=== PATIENT | female | born 1945 | race Caucasian/White ===

== ENCOUNTER → 2017-06-01 | Outpatient (CLI) | payer MEDICARE, BC | LOC: RAD 09:20 | DX: M25.562 Pain in left knee (principal); M25.569 Pain in unspecified knee; M17.11 Unilateral primary osteoarthritis, right knee ==

== ENCOUNTER → 2017-09-23 | Outpatient (CLI) | payer MEDICARE, BC | LOC: MAMMO 08:23 | DX: Z12.31 Encounter for screening mammogram for malignant neoplasm of breast (principal) | CPT/HCPCS: G0202 ==

== ENCOUNTER → 2017-11-17 | Outpatient (CLI) | payer MEDICARE, BC ==
[2017-11-17 10:10] LABS: HEMATOCRIT 45.4 % (37.0-47.0); HEMOGLOBIN 14.6 g/dL (12.5-16.0); RED BLOOD COUNT 4.98 M/mm3 (4.10-5.30); RED CELL DISTRIBUTION WIDTH 13.7 % (11.5-14.5); WHITE BLOOD COUNT 12.4 K/mm3 (4.8-10.8)
[2017-11-17 10:28] LABS: CALCIUM 9.7 mg/dL (8.4-10.2); POTASSIUM 4.5 mmol/L (3.6-5.0); TOTAL BILIRUBIN 0.6 mg/dL (0.2-1.3); TOTAL PROTEIN 6.9 g/dL (6.3-8.2)
== END ==
LOC: LAB 09:37
PROVIDERS: Nurse Practitioner Family
DX: E78.2 Mixed hyperlipidemia (principal); M15.9 Polyosteoarthritis, unspecified

== ENCOUNTER → 2018-05-18 | Outpatient (CLI) | payer MEDICARE, BC | LOC: LAB 08:24 | DX: E78.2 Mixed hyperlipidemia (principal) ==

== ENCOUNTER → 2018-08-17 | Outpatient (CLI) | payer MEDICARE, BC ==
[2018-08-17 11:15] LABS: ALBUMIN 4.3 g/dL (3.5-5.0); CALCIUM 9.8 mg/dL (8.4-10.2); POTASSIUM 4.6 mmol/L (3.6-5.0); TOTAL BILIRUBIN 0.6 mg/dL (0.2-1.3); TOTAL PROTEIN 7.1 g/dL (6.3-8.2)
== END ==
LOC: LAB 08:08
PROVIDERS: Physician Assistant
DX: E78.2 Mixed hyperlipidemia (principal)

== ENCOUNTER → 2018-10-20 | Outpatient (CLI) | payer MEDICARE, BC | LOC: MAMMO 12:59 | DX: Z12.31 Encounter for screening mammogram for malignant neoplasm of breast (principal) ==

== ENCOUNTER → 2019-02-24 | Outpatient (CLI) | payer MEDICARE, BC ==
[2019-02-24 08:56] LABS: ALBUMIN 3.8 g/dL (3.5-5.0); DIRECT BILIRUBIN 0.3 mg/dL (0.0-0.4); TOTAL BILIRUBIN 0.5 mg/dL (0.2-1.3); TOTAL PROTEIN 6.8 g/dL (6.3-8.2)
== END ==
LOC: LAB 08:23
PROVIDERS: Physician Assistant
DX: E78.2 Mixed hyperlipidemia (principal); E78.00 Pure hypercholesterolemia, unspecified

== ENCOUNTER → 2019-06-08 | Outpatient (CLI) | payer MEDICARE, BC ==
[2019-06-08 08:53] LABS: HEMATOCRIT 45.6 % (37.0-47.0); HEMOGLOBIN 14.4 g/dL (12.5-16.0); MEAN CELL VOLUME 89 fl (78-100); MEAN CORPUSCULAR HEMOGLOBIN 28 pg (27-31); MEAN CORPUSCULAR HGB CONC 32 g/dL (33-37); MEAN PLATELET VOLUME 8.8 fl (7.4-10.4); PLATELET COUNT 279 K/mm3 (130-400); RED CELL DISTRIBUTION WIDTH 14.5 % (11.5-14.5)
[2019-06-08 09:21] LABS: ALBUMIN 4.1 g/dL (3.4-4.8); POTASSIUM 4.5 mmol/L (3.5-5.1)
[2019-06-08 09:22] LABS: CALCIUM 9.7 mg/dL (8.3-10.5)
[2019-06-08 09:23] LABS: WHITE BLOOD COUNT 20.5 K/mm3 (4.8-10.8)
[2019-06-08 09:24] LABS: TOTAL PROTEIN 6.2 g/dL (6.2-8.1)
[2019-06-08 09:25] LABS: TOTAL BILIRUBIN 0.5 mg/dL (0.2-1.2)
[2019-06-08 11:42] LABS: LYMPHOCYTE 77 % (20-51); MONOCYTE 5 % (3-10); NEUTROPHILS 17 % (42-75)
== END ==
LOC: LAB 08:44
PROVIDERS: Physician Assistant
DX: Z00.00 Encounter for general adult medical examination without abnormal findings (principal); D47.9 Neoplasm of uncertain behavior of lymphoid, hematopoietic and related tissue, unspecified; Z12.31 Encounter for screening mammogram for malignant neoplasm of breast; K21.9 Gastro-esophageal reflux disease without esophagitis; E78.2 Mixed hyperlipidemia; M85.80 Other specified disorders of bone density and structure, unspecified site; R93.7 Abnormal findings on diagnostic imaging of other parts of musculoskeletal system; D72.820 Lymphocytosis (symptomatic); D47.Z9 Other specified neoplasms of uncertain behavior of lymphoid, hematopoietic and related tissue

== ENCOUNTER → 2019-06-13 | Outpatient (CLI) | payer MEDICARE, BC | LOC: RAD 19:10 | DX: S97.102A Crushing injury of unspecified left toe(s), initial encounter (principal) ==

== ENCOUNTER → 2019-06-21 | Outpatient (CLI) | payer MEDICARE, BC | LOC: RAD 09:58 → MAMMO 10:00 → RAD 10:00 | DX: Z00.00 Encounter for general adult medical examination without abnormal findings (principal); Z12.31 Encounter for screening mammogram for malignant neoplasm of breast; Z13.820 Encounter for screening for osteoporosis; K21.9 Gastro-esophageal reflux disease without esophagitis; E78.2 Mixed hyperlipidemia; M85.88 Other specified disorders of bone density and structure, other site; M85.852 Other specified disorders of bone density and structure, left thigh; M85.851 Other specified disorders of bone density and structure, right thigh; R93.7 Abnormal findings on diagnostic imaging of other parts of musculoskeletal system ==

== ENCOUNTER → 2019-10-21 | Outpatient (CLI) | payer MEDICARE, BC | LOC: MAMMO 09:29 | DX: Z12.31 Encounter for screening mammogram for malignant neoplasm of breast (principal) ==

== ENCOUNTER → 2020-08-09 | Outpatient (CLI) | payer MEDICARE, BC | LOC: LAB 08:05 | DX: Z00.00 Encounter for general adult medical examination without abnormal findings (principal); Z13.29 Encounter for screening for other suspected endocrine disorder; E78.00 Pure hypercholesterolemia, unspecified; M85.89 Other specified disorders of bone density and structure, multiple sites; E78.2 Mixed hyperlipidemia; K90.9 Intestinal malabsorption, unspecified ==

== ENCOUNTER → 2020-10-08 | Outpatient (CLI) | payer MEDICARE, BC | LOC: MAMMO 10:27 | DX: Z12.31 Encounter for screening mammogram for malignant neoplasm of breast (principal) ==

== ENCOUNTER → 2021-09-03 | Outpatient (CLI) | payer MEDICARE, BC ==
[2021-09-03 10:10] LABS: HEMOGLOBIN 14.2 g/dL (12.5-16.0); MEAN CELL VOLUME 92 fl (78-100); MEAN CORPUSCULAR HEMOGLOBIN 29 pg (27-31); MEAN CORPUSCULAR HGB CONC 32 g/dL (33-37); MEAN PLATELET VOLUME 8.9 fl (7.4-10.4); PLATELET COUNT 227 K/mm3 (130-400); RED CELL DISTRIBUTION WIDTH 13.6 % (11.5-14.5)
[2021-09-03 10:19] LABS: WHITE BLOOD COUNT 26.3 K/mm3 (4.8-10.8)
[2021-09-03 10:20] LABS: POTASSIUM 4.8 mmol/L (3.5-5.1)
[2021-09-03 10:21] LABS: CALCIUM 10.1 mg/dL (8.3-10.5)
[2021-09-03 10:22] LABS: TOTAL PROTEIN 6.6 g/dL (6.2-8.1)
[2021-09-03 10:24] LABS: TOTAL BILIRUBIN 0.5 mg/dL (0.2-1.2)
[2021-09-03 10:30] LABS: MAGNESIUM 2.17 mg/dL (1.60-2.60)
[2021-09-03 10:35] LABS: LYMPHOCYTE 84 % (20-51); MONOCYTE 6 % (3-10); NEUTROPHILS 10 % (42-75)
== END ==
LOC: LAB 09:43
PROVIDERS: Physician Assistant
DX: C91.90 Lymphoid leukemia, unspecified not having achieved remission (principal); M85.80 Other specified disorders of bone density and structure, unspecified site; E78.5 Hyperlipidemia, unspecified

== ENCOUNTER → 2021-10-15 | Outpatient (CLI) | payer MEDICARE, BC | LOC: MAMMO 12:59 | DX: Z12.31 Encounter for screening mammogram for malignant neoplasm of breast (principal) ==

== ENCOUNTER → 2022-04-22 | Outpatient (CLI) | payer MEDICARE, BC ==
[2022-04-22 10:29] LABS: POTASSIUM 4.6 mmol/L (3.5-5.1)
[2022-04-22 10:30] LABS: CALCIUM 9.7 mg/dL (8.3-10.5)
[2022-04-22 10:32] LABS: TOTAL PROTEIN 6.5 g/dL (6.2-8.1)
[2022-04-22 10:33] LABS: TOTAL BILIRUBIN 0.5 mg/dL (0.2-1.2)
== END ==
LOC: LAB 09:59
PROVIDERS: Physician Assistant
DX: E78.00 Pure hypercholesterolemia, unspecified (principal); M85.80 Other specified disorders of bone density and structure, unspecified site

== ENCOUNTER → 2022-07-14 | Outpatient (CLI) | payer MEDICARE, BC | LOC: RAD 13:30 | DX: R07.81 Pleurodynia (principal); R10.2 Pelvic and perineal pain; W19.XXXA Unspecified fall, initial encounter ==

== ENCOUNTER → 2022-10-30 | Outpatient (CLI) | payer MEDICARE, BC ==
[2022-10-30 09:01] LABS: POTASSIUM 4.1 mmol/L (3.5-5.1)
[2022-10-30 09:02] LABS: ALBUMIN 3.9 g/dL (3.4-4.8)
[2022-10-30 09:03] LABS: CALCIUM 9.8 mg/dL (8.3-10.5)
[2022-10-30 09:04] LABS: TOTAL PROTEIN 6.3 g/dL (6.2-8.1)
[2022-10-30 09:06] LABS: TOTAL BILIRUBIN 0.4 mg/dL (0.2-1.2)
== END ==
LOC: LAB 08:15
PROVIDERS: Physician Assistant
DX: Z00.00 Encounter for general adult medical examination without abnormal findings (principal); Z13.29 Encounter for screening for other suspected endocrine disorder; Z13.1 Encounter for screening for diabetes mellitus; Z12.39 Encounter for other screening for malignant neoplasm of breast; E78.00 Pure hypercholesterolemia, unspecified; J06.9 Acute upper respiratory infection, unspecified; C91.90 Lymphoid leukemia, unspecified not having achieved remission; E78.5 Hyperlipidemia, unspecified; M85.80 Other specified disorders of bone density and structure, unspecified site; F41.9 Anxiety disorder, unspecified

== ENCOUNTER → 2024-03-30 | Outpatient (CLI) | payer MEDICARE, BC ==
[2024-03-30 11:46] LABS: HEMATOCRIT 41.1 % (37.0-47.0); HEMOGLOBIN 12.5 g/dL (12.5-16.0); MEAN CELL VOLUME 93 fl (78-100); MEAN CORPUSCULAR HEMOGLOBIN 28 pg (27-31); MEAN CORPUSCULAR HGB CONC 30 g/dL (33-37); PLATELET COUNT 244 K/mm3 (130-400); RED BLOOD COUNT 4.42 M/mm3 (4.10-5.30)
[2024-03-30 11:52] LABS: ALBUMIN 4.1 g/dL (3.4-4.8)
[2024-03-30 11:54] LABS: CALCIUM 9.6 mg/dL (8.3-10.5)
[2024-03-30 11:55] LABS: TOTAL PROTEIN 6.4 g/dL (6.2-8.1)
[2024-03-30 11:57] LABS: TOTAL BILIRUBIN 0.2 mg/dL (0.2-1.2)
[2024-03-30 11:58] LABS: WHITE BLOOD COUNT 26.4 K/mm3 (4.8-10.8)
[2024-03-30 12:11] LABS: MONOCYTE 2 % (3-10); NEUTROPHILS 15 % (42-75)
[2024-03-30 12:19] LABS: LYMPHOCYTE 82 % (20-51)
== END ==
LOC: LAB 11:35
PROVIDERS: Nurse Practitioner
DX: C91.10 Chronic lymphocytic leukemia of B-cell type not having achieved remission (principal)

== ENCOUNTER → 2024-12-29 | Outpatient (CLI) | payer MEDICARE, BC | LOC: RAD 08:59 → MAMMO 09:30 | DX: Z13.820 Encounter for screening for osteoporosis (principal) ==

== ENCOUNTER → 2024-12-29 | Outpatient (CLI) | payer MEDICARE, BC | LOC: MAMMO 09:00 | DX: Z12.31 Encounter for screening mammogram for malignant neoplasm of breast (principal) ==

== ENCOUNTER → 2025-03-01 | Outpatient (CLI) | payer MEDICARE, BC | LOC: AMSURD 12:22 | DX: R10.13 Epigastric pain (principal) ==